=== PATIENT | female | born 1985 | race Hispanic/Latino ===

== ENCOUNTER 2022-08-13 04:16 | Emergency (ER) | payer OTHER ==
[~2022-08-13] VITALS: Ht 162.6 cm; Wt 96.2 kg
[2022-08-13] MEDS ORDERED: GUAI1TBM19 PO (05:21)
[2022-08-13] MEDS ORDERED: IBUP-1493 PO (05:21)
[2022-08-13 05:35] VITALS: BP 134/88
== END 2022-08-13 05:52 | disposition home or self-care (01) ==
LOC: EDH 04:16
DX: J02.9 Acute pharyngitis, unspecified (principal); J98.8 Other specified respiratory disorders; I10 Essential (primary) hypertension; Z20.822 Contact with and (suspected) exposure to COVID-19
CPT/HCPCS: 99283; 87635; 87880; 87804 ×2; C9803